=== PATIENT | female | born 1995 | race Two or more races ===

== ENCOUNTER → 2017-06-20 | Outpatient (REF) | payer OTHER ==
[2017-06-20 15:30] LABS: BASO % 0.7 % (0.0-1.0); EOS # 0.2 10^3/uL (0.0-0.50); EOS % 3.7 % (0.0-3.0); IMMATURE GRANULOCYTE % 0.2 % (0-0); LYMPH # 1.8 10^3/uL (1.5-6.5); LYMPH % 33.3 % (24.0-44.0); MEAN CORPUSCULAR HEMOGLOBIN 30.8 pg (27.0-33.0); MEAN CORPUSCULAR HGB CONC 33.6 g/dl (32.0-36.5); MEAN CORPUSCULAR VOLUME 91.5 fl (80.0-96.0); MONO # 0.4 10^3/uL (0.0-0.8); MONO % 6.4 % (0.0-5.0); NEUTROPHILS % 55.7 % (36.0-66.0); PLATELET COUNT, AUTOMATED 294 10^3/uL (150-450); WHITE BLOOD COUNT 5.4 10^3/uL (4.0-10.0)
[2017-06-20 15:42] LABS: ALBUMIN 4.1 GM/DL (3.2-5.2); ALBUMIN/GLOBULIN RATIO 1.21 (1.00-1.93); ALKALINE PHOSPHATASE 42 U/L (45-117); ALT/SGPT 18 U/L (12-78); ANION GAP 7 MEQ/L (8-16); AST/SGOT 13 U/L (7-37); BILIRUBIN,TOTAL 0.5 MG/DL (0.2-1.0); BLOOD UREA NITROGEN 13 MG/DL (7-18); CALCIUM LEVEL 9.3 MG/DL (8.5-10.1); CARBON DIOXIDE LEVEL 26 MEQ/L (21-32); CHLORIDE LEVEL 107 MEQ/L (98-107); CHOLESTEROL LEVEL 220 MG/DL (<200); CREATININE FOR GFR 0.81 MG/DL (0.55-1.02); FREE T4 1.03 NG/DL (0.78-1.33); GLUCOSE, FASTING 75 MG/DL (70-105); POTASSIUM SERUM 4.6 MEQ/L (3.5-5.1); SODIUM LEVEL 140 MEQ/L (136-145); TOTAL PROTEIN 7.5 GM/DL (6.4-8.2); TRIGLYCERIDES LEVEL 135 MG/DL (<150)
== END ==
LOC: M SFHCSACK 10:04
PROVIDERS: ATTEND Physician Assistant
DX: Z00.00 Encounter for general adult medical examination without abnormal findings (principal); Z13.220 Encounter for screening for lipoid disorders; Z13.29 Encounter for screening for other suspected endocrine disorder; Z13.21 Encounter for screening for nutritional disorder

== ENCOUNTER → 2017-07-12 | Outpatient (REF) | payer OTHER ==
[~2017-07-12] MED LIST: NICODIS2 TD; TRI-TAB PO
== END ==
LOC: M LAB REF 14:57
PROVIDERS: ATTEND Internal Medicine Gastroenterology
DX: L29.0 Pruritus ani (principal)

== ENCOUNTER 2017-07-17 12:53 | Day surgery (SDC) | payer OTHER ==
[~2017-07-17] VITALS: Ht 154.9 cm; Wt 54.4 kg
[2017-07-17] MEDS ORDERED: NS 1,000 ML IV SCH (13:15)
[2017-07-17] MEDS ORDERED: PROPOFOL 200 MG/20 ML VIAL As Ordered ONE (13:22)
--- NOTE | 2017-07-17 14:07 | ROOR ---
Patient Name: Deedee Castanon Procedure Date: 07/17/2017 1:31 PM Date of : 1995 Age: 21 Room: [facility] Gender: Female Note Status: Finalized Procedure: Colonoscopy Indications: Suspected Crohn's disease of the colon, Rectal pain Providers: Michael Capellan MD Referring MD: Mary Ann Collier Requesting Provider: Medicines: Monitored Anesthesia Care Complications: No immediate complications. Procedure: Pre-Anesthesia Assessment: - Prior to the procedure, a History and Physical was performed, and patient medications and allergies were reviewed. The patient is competent. The risks and benefits of the procedure and the sedation options and risks were discussed with the patient. All questions were answered and informed consent was obtained. Patient identification and proposed procedure were verified by the physician, the nurse and the anesthesiologist in the procedure room. Mental Status Examination: alert and oriented. Airway Examination: normal oropharyngeal airway and neck mobility. Respiratory Examination: clear to auscultation. CV Examination: normal. Prophylactic Antibiotics: The patient does not require prophylactic antibiotics. Prior Anticoagulants: The patient has taken no previous anticoagulant or antiplatelet agents. ASA Grade Assessment: I - A normal, healthy patient. After reviewing the risks and benefits, the patient was deemed in satisfactory condition to undergo the procedure. The anesthesia plan was to use monitored anesthesia care (MAC). Immediately prior to administration of medications, the patient was re-assessed for adequacy to receive sedatives. The heart rate, respiratory rate, oxygen saturations, blood pressure, adequacy of pulmonary ventilation, and response to care were monitored throughout the procedure. The physical status of the patient was re-assessed after the procedure. The Colonoscope was introduced through the anus and advanced to the terminal ileum, with identification of the appendiceal orifice and IC valve. The colonoscopy was performed without difficulty. The patient tolerated the procedure well. The quality of the bowel preparation was good. The terminal ileum, ileocecal valve, appendiceal orifice, and rectum were photographed. Scope insertion time was 3 minutes. Scope withdrawal time was 8 minutes. The total duration of the procedure was 11 minutes. Findings: The perianal and digital rectal examinations were normal. The terminal ileum appeared normal. A 5 mm polyp was found in the transverse colon. The polyp was sessile. The polyp was removed with a jumbo cold forceps. Resection and retrieval were complete. Verification of patient identification for the specimen was done by the physician and nurse using the patient's name, date and medical record number. Estimated blood loss was minimal. The retroflexed view of the distal rectum and anal verge was normal and showed no anal or rectal abnormalities. Impression: - The examined portion of the ileum was normal. - One 5 mm polyp in the transverse colon, removed with a jumbo cold forceps. Resected and retrieved. Recommendation: - Patient has a contact number available for emergencies. The signs and symptoms of potential delayed complications were discussed with the patient. Return to normal activities tomorrow. Written discharge instructions were provided to the patient. - Resume previous diet. - Continue present medications. - Await pathology results. - Return to GI clinic 1 - 2 weeks. Please call GI clinic @ [phone] for apppointment date and time. - Return to primary care physician. Michael Capellan MD Michael Capellan MD 07/17/2017 2:06:44 PM This report has been signed electronically. Number of Addenda: 0 Note Initiated On: 07/17/2017 1:31 PM Estimated Blood Loss: Estimated blood loss was minimal.
[2017-07-17 14:38] VITALS: BP 106/60
== END 2017-07-17 14:44 | disposition home or self-care (01) ==
LOC: M OPP 12:53
PROVIDERS: ATTEND Internal Medicine Gastroenterology
DX: R10.2 Pelvic and perineal pain (principal); L29.0 Pruritus ani; D12.3 Benign neoplasm of transverse colon; L70.9 Acne, unspecified; F17.210 Nicotine dependence, cigarettes, uncomplicated; Z79.899 Other long term (current) drug therapy; Z80.41 Family history of malignant neoplasm of ovary; Z80.49 Family history of malignant neoplasm of other genital organs

== ENCOUNTER → 2017-09-26 | Outpatient (REF) | payer OTHER ==
[2017-09-26 14:12] LABS: BASO % 0.5 % (0.0-1.0); EOS # 0.2 10^3/uL (0.0-0.50); EOS % 3.9 % (0.0-3.0); HEMATOCRIT 39.8 % (36.0-47.0); HEMOGLOBIN 13.3 g/dl (12.0-16.0); IMMATURE GRANULOCYTE % 0.5 % (0-3.0); LYMPH # 1.4 10^3/uL (1.5-6.5); LYMPH % 32.6 % (24.0-44.0); MEAN CORPUSCULAR HEMOGLOBIN 30.4 pg (27.0-33.0); MEAN CORPUSCULAR HGB CONC 33.4 g/dl (32.0-36.5); MEAN CORPUSCULAR VOLUME 90.9 fl (80.0-96.0); MONO # 0.3 10^3/uL (0.0-0.8); MONO % 7.9 % (0.0-5.0); NEUTROPHILS # 2.4 10^3/uL (1.8-7.7); NEUTROPHILS % 54.6 % (36.0-66.0); PLATELET COUNT, AUTOMATED 260 10^3/uL (150-450); RED BLOOD COUNT 4.38 10^6/uL (4.00-5.40); RED CELL DISTRIBUTION WIDTH 11.9 % (11.5-14.5); WHITE BLOOD COUNT 4.3 10^3/uL (4.0-10.0)
[2017-09-26 14:32] LABS: TOTAL 25(OH) VITAMIN D 31.4 NG/ML (30.0-100.0)
[2017-09-26 14:34] LABS: ALBUMIN 3.7 GM/DL (3.2-5.2); ALBUMIN/GLOBULIN RATIO 1.06 (1.00-1.93); ALKALINE PHOSPHATASE 55 U/L (45-117); ALT/SGPT 18 U/L (12-78); ANION GAP 8 MEQ/L (8-16); AST/SGOT 19 U/L (7-37); BILIRUBIN,TOTAL 0.3 MG/DL (0.2-1.0); BLOOD UREA NITROGEN 15 MG/DL (7-18); CARBON DIOXIDE LEVEL 27 MEQ/L (21-32); CHLORIDE LEVEL 106 MEQ/L (98-107); CHOLESTEROL LEVEL 170 MG/DL (<200); CHOLESTEROL RISK RATIO 2.698 (<5); CREATININE FOR GFR 0.71 MG/DL (0.55-1.30); GLOMERULAR FILTRATION RATE > 60.0 (>60); GLUCOSE, FASTING 74 MG/DL (70-100); HDL CHOLESTEROL 63 MG/DL (>40); LDL CHOLESTEROL 84.4 MG/DL (<100); NON-HDL-C 107 MG/DL; POTASSIUM SERUM 4.3 MEQ/L (3.5-5.1); SODIUM LEVEL 141 MEQ/L (136-145); TOTAL PROTEIN 7.2 GM/DL (6.4-8.2); TRIGLYCERIDES LEVEL 113 MG/DL (<150)
== END ==
LOC: M SFHCSACK 09:15
DX: Z00.00 Encounter for general adult medical examination without abnormal findings (principal); E78.2 Mixed hyperlipidemia; Z13.21 Encounter for screening for nutritional disorder
CPT/HCPCS: 82306

== ENCOUNTER → 2017-11-09 | Outpatient (REF) | payer OTHER | LOC: M SFHCSACK 10:56 | DX: J02.9 Acute pharyngitis, unspecified (principal) ==

== ENCOUNTER 2018-06-18 21:28 | Emergency (ER) | payer OTHER, MEDICAID ==
[2018-06-19] MEDS: diphenhydrAMINE 50 MG CAP PO (00:18)
[2018-06-19] MEDS: ANUSOL HC CREAM 30GM TOP (00:22)
== END 2018-06-19 00:23 | disposition home or self-care (01) ==
LOC: M ED 06-19 00:23
DX: L29.0 Pruritus ani (principal); S30.817A Abrasion of anus, initial encounter; X58.XXXA Exposure to other specified factors, initial encounter; Y92.89 Other specified places as the place of occurrence of the external cause; K64.9 Unspecified hemorrhoids; Z87.891 Personal history of nicotine dependence; Z79.3 Long term (current) use of hormonal contraceptives
CPT/HCPCS: 99283

== ENCOUNTER → 2018-09-17 | Outpatient (CLI) | payer OTHER ==
[~2018-09-17] MED LIST changes: +HYDR25OIN TOP; +[UNRECOGNIZED DRUG - CODE] TOP
[2018-09-17 18:17] LABS: BASO # 0.1 10^3/uL (0.0-0.2); BASO % 0.7 % (0.0-1.0); EOS # 0.2 10^3/uL (0.0-0.50); EOS % 2.2 % (0.0-3.0); LYMPH # 2.1 10^3/uL (1.5-6.5); LYMPH % 31.1 % (24.0-44.0); MEAN CORPUSCULAR HEMOGLOBIN 30.6 pg (27.0-33.0); MEAN CORPUSCULAR HGB CONC 32.5 g/dl (32.0-36.5); MEAN CORPUSCULAR VOLUME 94.1 fl (80.0-96.0); MONO # 0.4 10^3/uL (0.0-0.8); MONO % 5.5 % (0.0-5.0); NEUTROPHILS # 4.1 10^3/uL (1.8-7.7); NEUTROPHILS % 60.2 % (36.0-66.0); PLATELET COUNT, AUTOMATED 263 10^3/uL (150-450); RED BLOOD COUNT 4.25 10^6/uL (4.00-5.40); WHITE BLOOD COUNT 6.8 10^3/uL (4.0-10.0)
[2018-09-17 18:28] LABS: ALT/SGPT 22 U/L (12-78); BILIRUBIN,TOTAL 0.3 MG/DL (0.2-1.0); BLOOD UREA NITROGEN 15 MG/DL (7-18); CALCIUM LEVEL 9.1 MG/DL (8.5-10.1); CARBON DIOXIDE LEVEL 28 MEQ/L (21-32); CHLORIDE LEVEL 103 MEQ/L (98-107); CREATININE FOR GFR 0.84 MG/DL (0.55-1.30); FREE T4 0.92 NG/DL (0.76-1.46); GLOMERULAR FILTRATION RATE > 60.0 (>60); GLUCOSE, FASTING 76 MG/DL (70-100); POTASSIUM SERUM 4.5 MEQ/L (3.5-5.1); SODIUM LEVEL 140 MEQ/L (136-145)
[2018-09-17 18:51] LABS: MONO REFLEX EBV COMP NEGATIVE (NEGATIVE)
[2018-09-20 00:07] LABS: EBV VIRAL CAPSID AG IgG 99.4 U/mL (0.0-17.9); EBV VIRAL CAPSID AG IgM <36.0 U/mL (0.0-35.9); Lyme Disease IgG/IgM Antibodie <0.91 ISR (0.00-0.90); Lyme Disease IgM Ab Quantitati <0.80 index (0.00-0.79)
== END ==
LOC: M LABDRWAD 15:17
PROVIDERS: ATTEND Physician Assistant Medical
DX: R53.83 Other fatigue (principal)

== ENCOUNTER → 2019-02-18 | Outpatient (CLI) | payer OTHER | LOC: M WUC 17:39 | PROVIDERS: ATTEND Physician Assistant | DX: N92.6 Irregular menstruation, unspecified (principal) ==

== ENCOUNTER → 2019-05-30 | Outpatient (CLI) | payer OTHER ==
[2019-05-30 12:13] LABS: PROLACTIN 7.4 NG/ML; THYROID STIMULATING HORMONE 0.866 uIU/ML (0.358-3.740)
== END ==
LOC: M LAB 10:44
PROVIDERS: ATTEND Nurse Practitioner Family
DX: N91.2 Amenorrhea, unspecified (principal)

== ENCOUNTER → 2019-06-04 | Outpatient (CLI) | payer OTHER ==
--- NOTE | 2019-06-04 12:47 | REP ---
TRANSVAGINAL PELVIC ULTRASOUND: Transvaginal pelvic ultrasound performed. Uterus is retroverted and measures 6.2 x 3.2 x 3.8 cm. Endometrial thickness is 8 mm. There is no endometrial fluid collection. Right ovary measures 2.8 x 2.7 x 1.8 cm. There is a dominant follicle in the right ovary 1.0 x 1.5 x 2.0 cm. Left ovary measures 3.2 x 2.6 x 4.3 cm. There is a small simple cyst in the left ovary 2.4 x 2.1 x 3.3 cm. There is no other evidence of adnexal mass. There is no free fluid. There is no evidence of ovarian torsion, blood flow is seen in each ovary with duplex Doppler evaluation. IMPRESSION: Simple cyst left ovary 3.3 cm maximally. Dominant follicle right ovary 1.5 cm maximally. Endometrial thickness 8.0 mm. Electronically Signed by Moe Love MD 06/04/2019 01:13 P
== END ==
LOC: M RAD 10:53
PROVIDERS: ATTEND Nurse Practitioner Family
DX: N91.2 Amenorrhea, unspecified (principal); N83.202 Unspecified ovarian cyst, left side

== ENCOUNTER → 2019-06-30 | Outpatient (REF) | payer OTHER ==
[2019-06-30 14:16] LABS: BASO # 0.1 10^3/uL (0.0-0.2); EOS # 0.3 10^3/uL (0.0-0.5); EOS % 6.4 % (0.0-3.0); HEMATOCRIT 39.6 % (36.0-47.0); HEMOGLOBIN 12.7 g/dl (12.0-15.5); LYMPH # 1.6 10^3/uL (1.5-5.0); LYMPH % 30.9 % (24.0-44.0); MEAN CORPUSCULAR HGB CONC 32.1 g/dl (32.0-36.5); MEAN CORPUSCULAR VOLUME 93.4 fl (80.0-96.0); MONO # 0.4 10^3/uL (0.0-0.8); MONO % 8.2 % (0.0-5.0); NEUTROPHILS # 2.7 10^3/uL (1.5-8.5); NEUTROPHILS % 53.3 % (36.0-66.0); PLATELET COUNT, AUTOMATED 252 10^3/uL (150-450); RED BLOOD COUNT 4.24 10^6/uL (4.00-5.40)
[2019-06-30 14:25] LABS: ALBUMIN 3.7 GM/DL (3.2-5.2); ALT/SGPT 31 U/L (12-78); BILIRUBIN,TOTAL 0.5 MG/DL (0.2-1.0); BLOOD UREA NITROGEN 15 MG/DL (7-18); CALCIUM LEVEL 8.7 MG/DL (8.5-10.1); CARBON DIOXIDE LEVEL 27 MEQ/L (21-32); CHLORIDE LEVEL 108 MEQ/L (98-107); CHOLESTEROL LEVEL 164 MG/DL (<200); CHOLESTEROL RISK RATIO 2.376 (<5); CREATININE FOR GFR 0.78 MG/DL (0.55-1.30); GLOMERULAR FILTRATION RATE > 60.0 (>60); GLUCOSE, FASTING 87 MG/DL (70-100); HDL CHOLESTEROL 69 MG/DL (>40); LDL CHOLESTEROL 86 MG/DL (<100); NON-HDL-C 95 MG/DL; POTASSIUM SERUM 4.8 MEQ/L (3.5-5.1); SODIUM LEVEL 140 MEQ/L (136-145); TOTAL PROTEIN 6.9 GM/DL (6.4-8.2); TRIGLYCERIDES LEVEL 45 MG/DL (<150)
[2019-06-30 14:27] LABS: TOTAL 25(OH) VITAMIN D 23.8 NG/ML (30.0-100.0)
== END ==
LOC: M SFHCSACK 09:53
PROVIDERS: ATTEND Physician Assistant
DX: Z13.29 Encounter for screening for other suspected endocrine disorder (principal); L29.0 Pruritus ani; E78.2 Mixed hyperlipidemia; Z13.21 Encounter for screening for nutritional disorder

== ENCOUNTER → 2019-08-29 | Outpatient (REF) | payer OTHER | LOC: M LAB REF 15:21 | PROVIDERS: ATTEND Dermatology | DX: D22.30 Melanocytic nevi of unspecified part of face (principal) ==

== ENCOUNTER 2020-05-10 17:04 | Emergency (ER) | payer OTHER ==
[~2020-05-10] VITALS: Ht 154.9 cm; Wt 62.1 kg
[2020-05-10] MEDS ORDERED: prenatal (17:13)
[2020-05-10] MEDS ORDERED: benadryl (17:13)
[2020-05-10 20:31] LABS: BASO # 0.1 10^3/uL (0.0-0.2); BASO % 0.6 % (0.0-1.0); EOS # 0.6 10^3/uL (0.0-0.5); EOS % 3.6 % (0.0-3.0); HEMATOCRIT 38.4 % (36.0-47.0); HEMOGLOBIN 13.2 g/dl (12.0-15.5); LYMPH % 19.5 % (24.0-44.0); MEAN CORPUSCULAR HEMOGLOBIN 30.6 pg (27.0-33.0); MEAN CORPUSCULAR HGB CONC 34.4 g/dl (32.0-36.5); MEAN CORPUSCULAR VOLUME 88.9 fl (80.0-96.0); MONO # 0.9 10^3/uL (0.0-0.8); MONO % 5.5 % (0.0-5.0); NEUTROPHILS # 10.9 10^3/uL (1.5-8.5); NEUTROPHILS % 70.4 % (36.0-66.0); PLATELET COUNT, AUTOMATED 307 10^3/uL (150-450); RED BLOOD COUNT 4.32 10^6/uL (4.00-5.40); WHITE BLOOD COUNT 15.4 10^3/uL (4.0-10.0)
[2020-05-10] MEDS ORDERED: ACETAMINOPHEN 325 MG TAB PO ONE (20:45)
[2020-05-10] MEDS ORDERED: NS 1,000 ML IV ONE (20:45)
--- NOTE | 2020-05-10 22:05 | REPVR ---
PROCEDURE INFORMATION: Exam: US First Trimester, Transabdominal Exam date and time: 05/10/2020 9:19 PM Age: 24 years old Clinical indication: complicated by abdominal or pelvic pain; Lower; First trimester; Gestational age or lmp: 02/17/20; ; Additional info: Pelvic cramping TECHNIQUE: Imaging protocol: Real-time transabdominal obstetrical ultrasound of the maternal pelvis and a first trimester , less than 14 weeks 0 days, with image documentation. COMPARISON: No relevant prior studies available. FINDINGS: Gestation: Live single intrauterine gestation. Embryonic/ heart rate: heart rate is 169 bpm. Placenta: Unremarkable. No subchorionic bleed. Amniotic fluid: Amniotic fluid is normal for gestational age. BIOMETRY: Gestational age (AUA): Twelve weeks 1 day Harvel-Rump length: Harvel-rump length is 5.5 cm consistent with 12 week 1 day gestation. MATERNAL: Uterus: Unremarkable. Cervix: Unremarkable. Right adnexa: Right ovary measures 4.1 x 2.8 x 3.2 cm. It contains a cystic structure which may represent a corpus luteum measuring 2.7 x 1.8 x 1.6 cm. Arterial and venous blood flow is detected in the right ovary. Left adnexa: The left ovary is not identified. Intraperitoneal space: No intraperitoneal free fluid. IMPRESSION: Live single intrauterine gestation with ultrasound age of 12 weeks 1 day with an LUCILLE of 11/21/2020. Electronically signed by: Milagro Owens On 05/10/2020 22:05:45 PM
[2020-05-10] MEDS ORDERED: KEFL500C17 PO (22:34)
[2020-05-10 22:42] VITALS: BP 117/68
[2020-05-10] MEDS ORDERED: POTASSIUM CHLORIDE 10 MEQ SR TABLET PO ONE (22:45)
== END 2020-05-10 22:43 | disposition home or self-care (01) ==
LOC: M ED 17:04
DX: O26.891 Other specified pregnancy related conditions, first trimester (principal); Z32.01 Encounter for pregnancy test, result positive; O23.41 Unspecified infection of urinary tract in pregnancy, first trimester; Z3A.12 12 weeks gestation of pregnancy

== ENCOUNTER → 2020-08-30 | Outpatient (CLI) | payer OTHER ==
[~2020-08-30] MED LIST changes: +KEFL500C17 PO; +benadryl; +prenatal
[2020-08-30 11:07] LABS: HEMATOCRIT 35.2 % (36.0-47.0); HEMOGLOBIN 11.4 g/dl (12.0-15.5); MEAN CORPUSCULAR HEMOGLOBIN 29.7 pg (27.0-33.0); MEAN CORPUSCULAR HGB CONC 32.4 g/dl (32.0-36.5); MEAN CORPUSCULAR VOLUME 91.7 fl (80.0-96.0); PLATELET COUNT, AUTOMATED 253 10^3/uL (150-450); RED BLOOD COUNT 3.84 10^6/uL (4.00-5.40); WHITE BLOOD COUNT 12.4 10^3/uL (4.0-10.0)
== END ==
LOC: M LAB 09:34
PROVIDERS: ATTEND Obstetrics & Gynecology
DX: Z34.82 Encounter for supervision of other normal pregnancy, second trimester (principal); Z3A.00 Weeks of gestation of pregnancy not specified

== ENCOUNTER → 2020-09-02 | Outpatient (CLI) | payer OTHER | LOC: M LAB 08:13 | PROVIDERS: ATTEND Obstetrics & Gynecology | DX: O99.810 Abnormal glucose complicating pregnancy (principal); Z3A.00 Weeks of gestation of pregnancy not specified ==

== ENCOUNTER 2020-10-22 23:03 | Outpatient (CLI) | payer OTHER ==
[~2020-10-22] VITALS: Ht 154.9 cm; Wt 80.7 kg
[2020-10-22 23:29] VITALS: BP 134/71
[2020-10-23 00:21] VITALS: BP 111/56
[2020-10-23 00:41] VITALS: BP 122/74
[2020-10-23 00:42] LABS: APPEARANCE, URINE CLEAR (CLEAR); BACTERIA, URINE AUTO NEGATIVE (NEGATIVE); BILIRUBIN, URINE AUTO NEGATIVE (NEGATIVE); BLOOD, URINE BLOOD NEGATIVE (NEGATIVE); COLOR, URINE YELLOW (YELLOW); GLUCOSE, URINE (UA) AUTO NEGATIVE (NEGATIVE); KETONE, URINE AUTO NEGATIVE (NEGATIVE); LEUKOCYTE ESTERASE, URINE AUTO NEGATIVE (NEGATIVE); MUCUS, URINE SMALL (NEGATIVE); NITRITE, URINE AUTO NEGATIVE (NEGATIVE); PROTEIN, URINE AUTO NEGATIVE (NEGATIVE); RBC, URINE AUTO 0 /HPF (0-3); SPECIFIC GRAVITY URINE AUTO 1.012 (1.002-1.035); SQUAMOUS EPITHELIAL CELL UR AU 0 /HPF (0-6); UROBILINOGEN, URINE AUTO 0.2 mg/dL (0.0-2.0); WBC, URINE AUTO 2 /HPF (0-3)
[2020-10-23] MEDS ORDERED: ACETAMINOPHEN 500 MG TAB PO ONE (00:45)
--- NOTE | 2020-10-23 03:24 | IPNPDOC ---
Text Note Date of Service The patient was seen on 10/23/20. NOTE Subjective: Deedee is a 25-year-old female who is a at 35.1 weeks gestation with an LUCILLE of 11/26/20 based off of her first trimester ultrasound. She is receiving care at [facility]. Her has been uncomplicated. She presents tonight with complaints of lower back pain that was constant and with cramps. She denies vaginal bleeding, contractions, or leaking of fluid. She reports active movement. PMHx: Healthy SHx: none FHx: ovarian and uterine cancer Social Hx: [place], reports she is a former smoker. Denies use of alcohol or drugs during . OB Hx: ; 2015 induced . Objective: FHR: 120, moderate variability, positive accelerations, no decelerations. [place]: 5 to 12 minutes General: Alert and oriented. Does not appear to be in any distress Respiratory: Regular rate and rhythm, no use of accessory muscles. Abdomen: soft and non-tender to palpation. SCE: FT/thick/-2, midposition, soft, no show Assessment: IUP at 35.1, lower back pain, not in active labor Plan. Given Tylenol 1000 mg in hospital. Patient reported the Tylenol worked well and patient requested to go home. Discharged to home with precautions. Reviewed access to care, kick count, labor signs, and danger signs to report. Continue with routine OB appointments. VS,Fishbone, I+O VS, Fishbone, I+O Vital Signs Date Time Temp Pulse Resp B/P (MAP) Pulse Ox O2 Delivery O2 Flow Rate FiO2 10/23/20 02:02 97.5 88 18 10/23/20 00:41 122/74 (90) 10/22/20 23:30 98 Room Air PHILIPPE PAYNE CNM Oct 23, 2020 03:24
== END 2020-10-23 01:57 | disposition home or self-care (01) ==
LOC: M LDO 23:03
PROVIDERS: ATTEND Advanced Practice Midwife
DX: O26.893 Other specified pregnancy related conditions, third trimester (principal); M54.5 Low back pain; Z3A.35 35 weeks gestation of pregnancy; Z87.891 Personal history of nicotine dependence

== ENCOUNTER 2020-10-27 14:03 | Inpatient (IN) | payer OTHER ==
[2020-10-27] VITALS (33 sets, daily range): BP systolic 84–140; BP diastolic 47–103
[~2020-10-27] VITALS: Ht 154.9 cm; Wt 79.0 kg
[~2020-10-27 14:03] MED LIST changes: -ACET325C5 PO
[2020-10-27] MEDS ORDERED: ACET325C5 PO (14:38)
[2020-10-27] MEDS ORDERED: LIDOCAINE 1% MDV 20ML VIAL INFIL PRN (15:05)
[2020-10-27] MEDS ORDERED: METHYLERGONOVINE MALEATE 0.2 MG/ML VIAL (J2210) IM PRN (15:05)
[2020-10-27] MEDS ORDERED: OXYTOCIN DRIP 30 UNITS in IV 1 EA IV PRN (15:05)
[2020-10-27] MEDS ORDERED: OXYTOCIN DRIP 30 UNITS in IV 1 EA IV SCH (15:05)
[2020-10-27] MEDS ORDERED: PENICILLIN G POTASSIUM IV 5 MU in D5W MINI-BAG PLUS 100 ML IV STA (15:05)
[2020-10-27] MEDS: LR 1,000 ML IV SCH ×3 (15:49→20:41)
[2020-10-27] MEDS ORDERED: BETAMETHASONE SOLUSPAN 6MG/ML 5ML VIAL (J0702 PER 3MG) IM SCH (16:00)
--- NOTE | 2020-10-27 16:07 | HPE ---
HISTORY AND PHYSICAL DATE OF ADMISSION: 10/27/2020 HISTORY OF PRESENT ILLNESS: Deedee is a 25-year-old 2 para 0-0-1-0 at 35 and 5/7th weeks gestation with an EDC of 11/26/2020 based on first trimester ultrasound. She presents to Labor and Delivery today following a routine OB appointment where she was reported to have gross rupture of clear fluid. She does report that she had cramping contractions prior to the rupture. The rupture occurred at approximately 12:30 p.m. and she has continued to leak clear fluid. She does deny vaginal bleeding. The fetus has been active. Her care was initiated at [facility] in the first trimester. Her course has been uncomplicated. OBSTETRIC HISTORY: In 2014 elective termination of . OBSTETRIC LABS: O positive, antibody screen negative, rubella immune, VDRL nonreactive. Urine culture: No growth. Hepatitis B surface antigen negative. HIV negative. Hepatitis C nonreactive. Gonorrhea and chlamydia negative. Gestational diabetic screening elevated at 142. Her 3 hour glucose tolerance test was normal. Fasting 88, 1 hour 179, 2 hour 160, and 3 hour 137. Her GBS is unknown and was obtained today in the office. PAST MEDICAL HISTORY: Noncontributory. Normal Pap smear in February 2020. PAST SURGICAL HISTORY: None. FAMILY HISTORY: Ovarian cancer and uterine cancer. SOCIAL HISTORY: The patient is single, however the father of the baby is involved. She is employed as a daycare provider. She reports that she is a former smoker. She denies alcohol use and drug use. She reports no history of sexually transmitted infections. She denies a history of abuse, physical, sexual, and emotional. ALLERGIES: No known drug allergies. CURRENT MEDICATIONS: 1. vitamins. OBJECTIVE: Temperature 99.2, pulse 125, respirations 20, BP 109/62. She is alert and oriented x3. She does grimace with her contractions. heart rate is 150 with moderate variability, positive accelerations, negative decelerations, contractions appear to be every 2 to 5 minutes, they palpate mild. Her abdomen is gravid, cephalic presentation with an estimated weight of 6 pounds and presentation was confirmed with bedside ultrasound as well. Per report form certified nurse marketing compliance manager at the office, [facility], she was grossly ruptured, positive Nitrazine, positive ferning, 1 cm dilated, and 40% effaced. Sterile vaginal exam is deferred at this time. She continues to leak clear fluid. ASSESSMENT: Intrauterine at 35 and 5/7th weeks, heart rate Category 1, PPROM. PLAN: Admit patient to Labor and Delivery, routine laboratories, betamethasone for lung maturity, start IV Pitocin for labor induction. The patient likely will desire an episode for her labor coping per her report. The risks, benefits and alternatives have been reviewed with the patient. I have answered all of her questions. She has been verbally consented for emergency surgery and blood products if necessary. I do anticipate active labor and a vaginal delivery.
[2020-10-27 16:15] LABS: HEMATOCRIT 38.1 % (36.0-47.0); HEMOGLOBIN 12.2 g/dl (12.0-15.5); MEAN CORPUSCULAR HEMOGLOBIN 27.1 pg (27.0-33.0); MEAN CORPUSCULAR VOLUME 84.7 fl (80.0-96.0); PLATELET COUNT, AUTOMATED 337 10^3/uL (150-450)
[2020-10-27] MEDS ORDERED: FENTANYL 2MCG/ML ROPIVACAINE 0.2% IN 0.9% NACL 100ML IVBAG As Ordered ONE (19:42)
[2020-10-27] MEDS: PENICILLIN G POTASSIUM IV 2.5 MU in IV 1 EA IV SCH (20:04)
[2020-10-27] MEDS ORDERED: EPIDURAL COMMENT XX SCH (21:00)
[2020-10-27] MEDS ORDERED: ePHEDrine SULFATE 25 MG/5 ML(5MG/ML) SYRINGE IV PRN (21:00)
[2020-10-27] MEDS ORDERED: diphenhydrAMINE 50MG/ML VIAL (J1200) IV PRN (21:00)
[2020-10-27] MEDS ORDERED: REFRIGERATOR IV KEYS XX PRN (21:00)
[2020-10-27] MEDS ORDERED: NALOXONE INJ 0.4MG/1ML VIAL (J2310 PER 1MG) IV PRN (21:00)
[2020-10-27] MEDS ORDERED: FENTANYL/ROPIVACAINE/NACL BAG 100 ML EPIDURAL SCH (21:00)
[2020-10-27] MEDS ORDERED: LACTATED RINGER'S 1000 ML IV PRN (21:00)
[2020-10-27] MEDS ORDERED: ONDANSETRON 4MG/2ML VIAL IV PRN (21:00)
[2020-10-27] MEDS ORDERED: EPIDURAL/PCA KEYS XX PRN (21:00)
[2020-10-28] VITALS (15 sets, daily range): BP systolic 103–144; BP diastolic 53–82
[2020-10-28] MEDS: PENICILLIN G POTASSIUM IV 2.5 MU in IV 1 EA IV SCH (00:17)
[2020-10-28] MEDS ORDERED: OXYTOCIN DRIP 30 UNITS in IV 1 EA IV SCH (01:57)
[2020-10-28] MEDS ORDERED: IBUPROFEN 800 MG TAB PO PRN (02:00)
[2020-10-28] MEDS ORDERED: MEASLES,MUMPS,RUBELLA VACCINE INJ (MMR-II) (90707) SC SCH (02:00)
[2020-10-28] MEDS ORDERED: ACETAMINOPHEN TAB 650MG DOSE (2X325MG) PO PRN (02:00)
[2020-10-28] MEDS ORDERED: IBUPROFEN 600MG TAB PO PRN (02:00)
[2020-10-28] MEDS ORDERED: METHYLERGONOVINE MALEATE 0.2 MG TAB PO PRN (02:00)
[2020-10-28] MEDS ORDERED: DIBUCAINE 1% OINTMENT 30GM TOP PRN (02:00)
[2020-10-28] MEDS ORDERED: DOCUSATE SODIUM 100MG CAPSULE PO PRN (02:00)
[2020-10-28] MEDS ORDERED: ACETAMINOPHEN 500 MG TAB PO PRN (02:00)
[2020-10-28] MEDS ORDERED: RHOGAM 300 MCG (1500 IU) INJ (J2790) IM SCH (02:00)
[2020-10-28] MEDS: PRENATAL VITAMINS CHEWABLE TABLET PO SCH (08:36)
--- NOTE | 2020-10-28 10:02 | DN ---
DELIVERY NOTE DATE OF DELIVERY: 10/28/2020 TIME OF : 0126 GENDER: Female APGARS: 9 and 9 LACERATIONS: First-degree and right labial. ANESTHESIA: Epidural. ESTIMATED BLOOD LOSS: 350 mL. COUNTS: Correct and verified. DESCRIPTION OF DELIVERY: Deedee is a 25-year-old 2, para 0-1-1-1 now, who was admitted to labor and delivery with premature rupture of membranes. IV Pitocin was started and labor did ensue. She used an epidural for her labor coping. She reached full dilation at 0029. She pushed to a normal spontaneous vaginal delivery of a live female infant in occiput anterior (OA) position with restitution to left occiput transverse (LOT) position with a left compound hand at 0126. Shoulders delivered spontaneously and the corpus immediately followed. The 's mouth and nares were bulb suctioned and she was placed on the maternal abdomen crying and active. The cord was clamped x2 once pulsations ceased and cut by the father of the baby under my direction. Cord blood was obtained. Spontaneous expulsion of an intact placenta with three-vessel cord by Hernandez mechanism was at 0131. Uterine hemostasis achieved with IV Pitocin rapid infusion and uterine fundal massage. Estimated blood loss 350 mL. Perineum and vagina inspected noted to have a first-degree laceration and a right labial laceration. The lacerations were repaired with 3-0 Vicryl Rapide in the usual fashion. [place] female weighed 7 pounds 2 ounces (3230 grams). Apgars 9 and 9. Mom is going to breastfeed. This family has named their daughter Kathia. At the close of delivery lap counts, needle counts, and instrument counts were correct and verified.
[2020-10-28] MEDS ORDERED: LR 1,000 ML IV ONE (10:35)
[2020-10-29 02:00] VITALS: BP_SYST 117; BP_SYST 134; BP_DIAS 57; BP_DIAS 71
[2020-10-29 06:00] VITALS: BP 119/78
[2020-10-29] MEDS: PRENATAL VITAMINS CHEWABLE TABLET PO SCH (08:03)
--- NOTE | 2020-10-29 08:11 | IPNPDOC ---
Progress Note Date of Service: Oct 29, 2020 Day#: 1 Progress Note SUBJECT: Status post . She has been ambulating, voiding spontaneously without issue and tolerating regular diet. Lochia decreasing/minimal. Pain is well-controlled. Denies headache, visual changes, right upper quadrant pain, shortness breath or chest pain. OBJECTIVE: VITAL SIGNS: Within normal limits, afebrile. Alert and oriented times three. Abdomen: Fundus firm at U-2. Soft, NTTP. ASSESSMENT: Status post uncomplicated spontaneous vaginal delivery. Vitals within normal limits, afebrile, hemodynamically stable with no evidence of infection. PLAN: Discharge to home today. Tylenol and Motrin for pain. Routine instructions/precautions reviewed. Routine PP visit in 6 weeks in clinic. VS, I&O, 24H, Fishbone Vital Signs/I&O Vital Signs Date Time Temp Pulse Resp B/P (MAP) Pulse Ox O2 Delivery O2 Flow Rate FiO2 10/29/20 06:00 97.9 100 16 119/78 (92) 98 Room Air CHEPE HINES DO Oct 29, 2020 08:11
[2020-10-29] MEDS ORDERED: BOOSTRIX/ADACEL VACCINE (DIPHTH/PERTUSS/ACELL/TETANUS) 0.5ML SYR IM ONE (09:00)
[2020-10-29 10:00] VITALS: BP 119/64
[2020-10-29 14:00] VITALS: BP 121/72
[2020-10-29 18:00] VITALS: BP 118/68
[2020-10-29 22:00] VITALS: BP 121/75
[2020-10-30 06:00] VITALS: BP 122/84
[2020-10-30] MEDS: PRENATAL VITAMINS CHEWABLE TABLET PO SCH (09:05)
== END 2020-10-30 10:10 | disposition home or self-care (01) | DRG 560 ==
LOC: M LDI 14:03 → M OBS 10-28 03:12
PROVIDERS: ADMIT Advanced Practice Midwife; ATTEND Advanced Practice Midwife
PROC: 10E0XZZ Delivery of Products of Conception, External Approach (ICD-10-PCS; principal; 2020-10-28)
PROC: 0HQ9XZZ Repair Perineum Skin, External Approach (ICD-10-PCS; 2020-10-28)
DX: O42.013 Preterm premature rupture of membranes, onset of labor within 24 hours of rupture, third trimester (principal); Z3A.35 35 weeks gestation of pregnancy; Z37.0 Single live birth; O64.5XX0 Obstructed labor due to compound presentation, not applicable or unspecified; O70.0 First degree perineal laceration during delivery

== ENCOUNTER → 2020-10-27 | Outpatient (REF) | payer OTHER, MEDICAID ==
[~2020-10-27] MED LIST changes: +ACET325C5 PO
== END ==
LOC: M LAB REF 16:15
PROVIDERS: ATTEND Advanced Practice Midwife
DX: Z34.83 Encounter for supervision of other normal pregnancy, third trimester (principal)

== ENCOUNTER → 2021-02-12 | Outpatient (CLI) | payer OTHER ==
[~2021-02-12] MED LIST changes: +ACET325C5 PO
[2021-02-12 11:54] LABS: FREE T4 0.7 NG/DL (0.76-1.46); THYROID STIMULATING HORMONE 0.831 uIU/ML (0.358-3.740)
== END ==
LOC: M LAB 09:46
PROVIDERS: ATTEND Orthopaedic Surgery
DX: G56.03 Carpal tunnel syndrome, bilateral upper limbs (principal)

== ENCOUNTER → 2021-04-20 | Outpatient (REF) | payer OTHER ==
[2021-04-20 18:28] LABS: APPEARANCE, URINE CLOUDY (CLEAR); BACTERIA, URINE AUTO NEGATIVE (NEGATIVE); BILIRUBIN, URINE AUTO NEGATIVE (NEGATIVE); BLOOD, URINE BLOOD NEGATIVE (NEGATIVE); COLOR, URINE YELLOW (YELLOW); GLUCOSE, URINE (UA) AUTO NEGATIVE (NEGATIVE); KETONE, URINE AUTO NEGATIVE (NEGATIVE); LEUKOCYTE ESTERASE, URINE AUTO 3+ (NEGATIVE); MUCUS, URINE SMALL (NEGATIVE); NITRITE, URINE AUTO NEGATIVE (NEGATIVE); PROTEIN, URINE AUTO 1+ mg/dL (NEGATIVE); RBC, URINE AUTO 5 /HPF (0-3); SPECIFIC GRAVITY URINE AUTO 1.023 (1.002-1.035); SQUAMOUS EPITHELIAL CELL UR AU 3 /HPF (0-6); UROBILINOGEN, URINE AUTO 0.2 mg/dL (0.0-2.0); WBC, URINE AUTO TNTC /HPF (0-3)
== END ==
LOC: M SFHCADAM 16:16
PROVIDERS: ATTEND Physician Assistant
DX: N30.00 Acute cystitis without hematuria (principal)

== ENCOUNTER → 2022-08-21 | Outpatient (REF) | payer OTHER | LOC: M SFHCDERM 11:58 | PROVIDERS: ATTEND Physician Assistant | DX: D23.22 Other benign neoplasm of skin of left ear and external auricular canal (principal) ==

== ENCOUNTER → 2022-10-18 | Outpatient (REF) | payer OTHER | LOC: M SFHCDERM 14:21 | PROVIDERS: ATTEND Dermatology | DX: I78.1 Nevus, non-neoplastic (principal); L90.5 Scar conditions and fibrosis of skin ==

== ENCOUNTER → 2022-12-01 | Outpatient (REF) | payer OTHER ==
[2022-12-01 15:27] LABS: GC DNA AMPLIFICATION NEGATIVE (NEGATIVE)
== END ==
LOC: M SFHCADAM 12:50
PROVIDERS: ATTEND Physician Assistant
DX: R35.0 Frequency of micturition (principal); N76.0 Acute vaginitis

== ENCOUNTER → 2023-10-09 | Outpatient (REF) | payer OTHER ==
[2023-10-09 15:49] LABS: BASO # 0.1 10^3/uL (0.0-0.2); BASO % 0.7 % (0.0-1.0); EOS # 0.2 10^3/uL (0.0-0.5); HEMATOCRIT 41.8 % (36.0-47.0); HEMOGLOBIN 13.9 g/dl (12.0-15.5); LYMPH # 2.8 10^3/uL (1.5-5.0); LYMPH % 38.1 % (24.0-44.0); MEAN CORPUSCULAR HEMOGLOBIN 30.2 pg (27.0-33.0); MEAN CORPUSCULAR HGB CONC 33.3 g/dl (32.0-36.5); MEAN CORPUSCULAR VOLUME 90.9 fl (80.0-96.0); MONO # 0.4 10^3/uL (0.0-0.8); MONO % 5.1 % (2.0-8.0); NEUTROPHILS # 3.9 10^3/uL (1.5-8.5); PLATELET COUNT, AUTOMATED 276 10^3/uL (150-450); WHITE BLOOD COUNT 7.4 10^3/uL (4.0-10.0)
[2023-10-09 16:01] LABS: APPEARANCE, URINE CLEAR (CLEAR); BACTERIA, URINE AUTO NEGATIVE (NEGATIVE); BILIRUBIN, URINE AUTO NEGATIVE (NEGATIVE); BLOOD, URINE BLOOD NEGATIVE (NEGATIVE); COLOR, URINE YELLOW (YELLOW); GLUCOSE, URINE (UA) AUTO NEGATIVE (NEGATIVE); KETONE, URINE AUTO NEGATIVE (NEGATIVE); LEUKOCYTE ESTERASE, URINE AUTO NEGATIVE (NEGATIVE); MUCUS, URINE SMALL (NEGATIVE); NITRITE, URINE AUTO NEGATIVE (NEGATIVE); PROTEIN, URINE AUTO NEGATIVE (NEGATIVE); RBC, URINE AUTO 0 /HPF (0-3); SPECIFIC GRAVITY URINE AUTO 1.024 (1.002-1.035); SQUAMOUS EPITHELIAL CELL UR AU 0 /HPF (0-6); UROBILINOGEN, URINE AUTO 0.2 mg/dL (0.0-2.0); WBC, URINE AUTO 0 /HPF (0-3)
[2023-10-09 16:22] LABS: ALBUMIN 4.1 G/DL (3.2-5.2); ALKALINE PHOSPHATASE 53 U/L (46-116); ALT/SGPT 21 U/L (7.0-40); AST/SGOT 13 U/L (<34); BILIRUBIN,TOTAL 0.3 MG/DL (0.3-1.2); BLOOD UREA NITROGEN 21 MG/DL (9-23); CALCIUM LEVEL 8.6 MG/DL (8.5-10.1); CARBON DIOXIDE LEVEL 27 MMOL/L (20-31); CHLORIDE LEVEL 106 MMOL/L (98-107); CREATININE FOR GFR 0.73 MG/DL (0.55-1.30); FREE T4 1.01 NG/DL (0.89-1.76); GLOMERULAR FILTRATION RATE > 60.0 (>60); GLUCOSE, FASTING 83 MG/DL (60-100); POTASSIUM SERUM 4.3 MMOL/L (3.5-5.1); SODIUM LEVEL 140 MMOL/L (136-145); TOTAL PROTEIN 7.3 G/DL (5.7-8.2)
== END ==
LOC: M SFHCADAM 14:11
PROVIDERS: ATTEND Physician Assistant
DX: R35.0 Frequency of micturition (principal); Z12.4 Encounter for screening for malignant neoplasm of cervix

== ENCOUNTER → 2024-01-31 | Outpatient (REF) | payer OTHER ==
[2024-01-31 17:29] LABS: HEMATOCRIT 41.9 % (36.0-47.0); HEMOGLOBIN 14.1 g/dl (12.0-15.5); MEAN CORPUSCULAR HEMOGLOBIN 30.3 pg (27.0-33.0); MEAN CORPUSCULAR HGB CONC 33.7 g/dl (32.0-36.5); MEAN CORPUSCULAR VOLUME 89.9 fl (80.0-96.0); PLATELET COUNT, AUTOMATED 290 10^3/uL (150-450); RED BLOOD COUNT 4.66 10^6/uL (4.00-5.40); WHITE BLOOD COUNT 8.7 10^3/uL (4.0-10.0)
[2024-01-31 18:12] LABS: HEPATITIS B SURFACE ANTIGEN NEGATIVE (NEGATIVE)
[2024-01-31 18:25] LABS: HIV 1&2 SCREEN NEGATIVE (NEGATIVE)
[2024-01-31 18:33] LABS: HEPATITIS C VIRUS ABY INDEX < 0.02 INDEX (<0.8)
== END ==
LOC: M LAB REF 16:23
PROVIDERS: ATTEND Advanced Practice Midwife
DX: O36.80X0 Pregnancy with inconclusive fetal viability, not applicable or unspecified (principal); Z32.01 Encounter for pregnancy test, result positive; Z3A.00 Weeks of gestation of pregnancy not specified

== ENCOUNTER → 2024-02-11 | Outpatient (REF) | payer OTHER | LOC: M LAB REF 16:33 | PROVIDERS: ATTEND Advanced Practice Midwife | DX: O20.0 Threatened abortion (principal) ==

== ENCOUNTER → 2024-02-18 | Outpatient (REF) | payer OTHER | LOC: M LAB REF 12:35 | PROVIDERS: ATTEND Obstetrics & Gynecology | DX: O02.1 Missed abortion (principal) ==

== ENCOUNTER → 2024-02-25 | Outpatient (REF) | payer OTHER | LOC: M LAB REF 12:37 | PROVIDERS: ATTEND Obstetrics & Gynecology | DX: O02.1 Missed abortion (principal) ==

== ENCOUNTER → 2024-03-10 | Outpatient (REF) | payer OTHER | LOC: M LAB REF 12:26 | PROVIDERS: ATTEND Obstetrics & Gynecology | DX: O02.1 Missed abortion (principal) ==

== ENCOUNTER → 2024-07-24 | Outpatient (REF) | payer OTHER ==
[2024-07-24 13:33] LABS: HEMATOCRIT 39.8 % (36.0-47.0); HEMOGLOBIN 13.8 g/dl (12.0-15.5); MEAN CORPUSCULAR HEMOGLOBIN 30.8 pg (27.0-33.0); MEAN CORPUSCULAR HGB CONC 34.7 g/dl (32.0-36.5); MEAN CORPUSCULAR VOLUME 88.8 fl (80.0-96.0); PLATELET COUNT, AUTOMATED 288 10^3/uL (150-450); RED BLOOD COUNT 4.48 10^6/uL (4.00-5.40); WHITE BLOOD COUNT 9.7 10^3/uL (4.0-10.0)
[2024-07-24 14:24] LABS: HIV 1&2 SCREEN NEGATIVE (NEGATIVE)
[2024-07-24 14:32] LABS: HEPATITIS C VIRUS ABY INDEX < 0.02 INDEX (<0.8)
[2024-07-24 14:42] LABS: HCG, SERUM QUANTITATIVE 162798.4 MIU/ML (<4.2)
== END ==
LOC: M LAB REF 12:35
PROVIDERS: ATTEND Obstetrics & Gynecology
DX: O36.80X0 Pregnancy with inconclusive fetal viability, not applicable or unspecified (principal); Z3A.00 Weeks of gestation of pregnancy not specified

== ENCOUNTER 2024-07-31 10:29 | Emergency (ER) | payer OTHER ==
[~2024-07-31] VITALS: Ht 154.9 cm; Wt 72.9 kg
[2024-07-31 11:33] VITALS: TEMP 98.1; O2SAT 97
[2024-07-31 12:31] LABS: BASO % 0.3 % (0.0-1.0); EOS # 0.1 10^3/uL (0.0-0.5); EOS % 0.7 % (0.0-3.0); HEMATOCRIT 36.9 % (36.0-47.0); HEMOGLOBIN 12.5 g/dl (12.0-15.5); LYMPH # 1.6 10^3/uL (1.5-5.0); LYMPH % 17.3 % (24.0-44.0); MEAN CORPUSCULAR HGB CONC 33.9 g/dl (32.0-36.5); MEAN CORPUSCULAR VOLUME 88.5 fl (80.0-96.0); MONO # 0.5 10^3/uL (0.0-0.8); MONO % 5.6 % (2.0-8.0); NEUTROPHILS # 6.9 10^3/uL (1.5-8.5); NEUTROPHILS % 75.7 % (36.0-66.0); PLATELET COUNT, AUTOMATED 286 10^3/uL (150-450); RED BLOOD COUNT 4.17 10^6/uL (4.00-5.40); WHITE BLOOD COUNT 9.1 10^3/uL (4.0-10.0)
[2024-07-31 12:51] LABS: BLOOD UREA NITROGEN 8 MG/DL (9-23); CALCIUM LEVEL 9.4 MG/DL (8.5-10.1); CARBON DIOXIDE LEVEL 23 MMOL/L (20-31); CHLORIDE LEVEL 104 MMOL/L (98-107); GLOMERULAR FILTRATION RATE > 60.0 (>60); GLUCOSE, FASTING 81 MG/DL (60-100); POTASSIUM SERUM 4.6 MMOL/L (3.5-5.1); SODIUM LEVEL 136 MMOL/L (136-145)
[2024-07-31] MEDS: ONDANSETRON 4MG 2ML VIAL IV ONE (13:45)
[2024-07-31 13:57] VITALS: BP 102/96
[2024-07-31] MEDS: NS (Normal Saline) 0.9% 1,000 ML IV ONE (14:51)
[2024-07-31] MEDS ORDERED: ONDA-282 PO (17:53)
== END 2024-07-31 18:08 | disposition home or self-care (01) ==
LOC: M ED 10:29
DX: O21.9 Vomiting of pregnancy, unspecified (principal); Z3A.09 9 weeks gestation of pregnancy; Z87.59 Personal history of other complications of pregnancy, childbirth and the puerperium
CPT/HCPCS: 76801; 80048; 84702; 85025; 86850; 86900; 86901; 96374; 99284; J2405

== ENCOUNTER → 2024-10-16 | Outpatient (CLI) | payer OTHER ==
[~2024-10-16] MED LIST changes: +ONDA-282 PO
== END ==
LOC: M WHC 09:24
PROVIDERS: ATTEND Obstetrics & Gynecology
DX: Z34.82 Encounter for supervision of other normal pregnancy, second trimester (principal); Z3A.20 20 weeks gestation of pregnancy

== ENCOUNTER → 2024-11-06 | Outpatient (REF) | payer OTHER ==
[~2024-11-06] MED LIST changes: +MACR100C43 PO; +PYRI1TAB5 PO; -prenatal; +prenatal PO
== END ==
LOC: M LAB REF 17:17
PROVIDERS: ATTEND Obstetrics & Gynecology
DX: Z34.82 Encounter for supervision of other normal pregnancy, second trimester (principal); R30.0 Dysuria

== ENCOUNTER 2024-11-07 15:03 | Emergency (ER) | payer OTHER ==
[~2024-11-07 15:03] MED LIST changes: -MACR100C43 PO; -PYRI1TAB5 PO
[2024-11-07] MEDS ORDERED: PYRI1TAB5 PO (18:24)
[2024-11-07] MEDS ORDERED: MACR100C43 PO (18:24)
== END 2024-11-07 15:05 | disposition admitted as inpatient to this hospital (09) ==
LOC: M ED 15:03
DX: Z53.21 Procedure and treatment not carried out due to patient leaving prior to being seen by health care provider (principal)

== ENCOUNTER 2024-11-07 15:12 | Outpatient (CLI) | payer OTHER ==
[~2024-11-07] VITALS: Ht 154.9 cm; Wt 81.2 kg
[2024-11-07 15:40] VITALS: O2SAT 97
[2024-11-07 15:42] VITALS: BP 119/60
[2024-11-07 16:24] LABS: KETONE, URINE AUTO RFX NEGATIVE (NEGATIVE); LEUKOCYTE ESTERASE UR AUTO RFX 3+ (NEGATIVE); MUCUS, URINE RFX SMALL (NEGATIVE); NITRITE, URINE AUTO RFX NEGATIVE (NEGATIVE); RBC, URINE AUTO RFX 22 /HPF (0-3); SQUAM EPITHELIAL CELL UR AURFX 3 /HPF (0-6); WBC, URINE AUTO RFX TNTC /HPF (0-3)
[2024-11-07] MEDS ORDERED: HOME MED LIST COMPLETE! XX SCH (16:25)
[2024-11-07] MEDS: ACETAMINOPHEN 500 MG TAB PO ONE (16:34)
[2024-11-07 16:47] VITALS: BP 101/57; O2SAT 100
[2024-11-07 17:43] LABS: HEMATOCRIT 36.7 % (36.0-47.0); HEMOGLOBIN 12.1 g/dl (12.0-15.5); MEAN CORPUSCULAR VOLUME 90.8 fl (80.0-96.0); PLATELET COUNT, AUTOMATED 300 10^3/uL (150-450); RED BLOOD COUNT 4.04 10^6/uL (4.00-5.40)
[2024-11-07] MEDS ORDERED: PYRI1TAB5 PO (18:24)
[2024-11-07] MEDS ORDERED: MACR100C43 PO (18:24)
[2024-11-07] MEDS: PHENAZOPYRIDINE 100 MG TAB PO ONE (18:56)
[2024-11-07] MEDS: NITROFURANTOIN (MACROBID) 100 MG CAP PO ONE (18:56)
[2024-11-07] MEDS: ONDANSETRON 4MG 2ML VIAL IV ONE (20:16)
[2024-11-07 21:36] VITALS: BP 114/66
== END 2024-11-07 21:50 | disposition home or self-care (01) ==
LOC: M LDO 15:12
PROVIDERS: ATTEND Advanced Practice Midwife
DX: O23.42 Unspecified infection of urinary tract in pregnancy, second trimester (principal); O26.892 Other specified pregnancy related conditions, second trimester; R10.32 Left lower quadrant pain; M54.50 Low back pain, unspecified; N39.0 Urinary tract infection, site not specified; R10.2 Pelvic and perineal pain; B96.29 Other Escherichia coli [E. coli] as the cause of diseases classified elsewhere; Z3A.23 23 weeks gestation of pregnancy
CPT/HCPCS: 76775; 81001; 85027; 87088; 87186; 96374; G0463; J2405

== ENCOUNTER → 2024-12-08 | Outpatient (CLI) | payer OTHER ==
[~2024-12-08] MED LIST changes: +MACR100C43 PO; +PYRI1TAB5 PO
[2024-12-08 11:26] LABS: HEMATOCRIT 34.6 % (36.0-47.0); HEMOGLOBIN 11.2 g/dl (12.0-15.5); MEAN CORPUSCULAR HEMOGLOBIN 28.8 pg (27.0-33.0); MEAN CORPUSCULAR HGB CONC 32.4 g/dl (32.0-36.5); MEAN CORPUSCULAR VOLUME 88.9 fl (80.0-96.0); PLATELET COUNT, AUTOMATED 285 10^3/uL (150-450); RED BLOOD COUNT 3.89 10^6/uL (4.00-5.40); WHITE BLOOD COUNT 11.8 10^3/uL (4.0-10.0)
== END ==
LOC: M LAB 09:34
PROVIDERS: ATTEND Obstetrics & Gynecology
DX: Z34.82 Encounter for supervision of other normal pregnancy, second trimester (principal)

== ENCOUNTER → 2024-12-16 | Outpatient (CLI) | payer OTHER | LOC: M LAB 07:37 | PROVIDERS: ATTEND Obstetrics & Gynecology | DX: O99.810 Abnormal glucose complicating pregnancy (principal); Z3A.00 Weeks of gestation of pregnancy not specified ==

== ENCOUNTER 2025-03-05 05:37 | Inpatient (IN) | payer OTHER ==
[2025-03-05] VITALS (10 sets, daily range): BP systolic 119–136; BP diastolic 60–83; TEMP 96.5; O2SAT 97–98
[~2025-03-05] VITALS: Ht 154.9 cm; Wt 89.9 kg
[~2025-03-05 05:37] MED LIST changes: +GLYB5TAB6 PO
[2025-03-05] MEDS ORDERED: LR 1,000 ML IV SCH (05:50)
[2025-03-05] MEDS: LACTATED RINGER'S 1000 ML IV STA (06:21)
[2025-03-05 07:13] LABS: PLATELET COUNT, AUTOMATED 247 10^3/uL (150-450)
[2025-03-05] MEDS ORDERED: MORPHINE PRES-FREE INJ 10 MG/10 ML VIAL As Ordered ONE (07:17)
[2025-03-05] MEDS ORDERED: ONDANSETRON 4MG 2ML VIAL As Ordered ONE (07:23)
[2025-03-05] MEDS ORDERED: KETOROLAC 30 MG/ML 1 ML VIAL As Ordered ONE (07:23)
[2025-03-05] MEDS ORDERED: ACETAMINOPHEN 1000MG/100ML IV BAG As Ordered ONE (07:25)
[2025-03-05] MEDS: BICITRA 30 ML SOLN UDC PO ONE (07:30)
[2025-03-05] MEDS: ceFAZolin SODIUM 2 GM in DEXTROSE 5% (D5W) ADV/MINI-BAG 50 ML IV ONE (07:30)
[2025-03-05] MEDS ORDERED: PERC5TAB12 PO (07:31)
[2025-03-05] MEDS ORDERED: IBUP-359 PO (07:33)
[2025-03-05 07:37] LABS: GLUCOSE,RANDOM 82 MG/DL (LESS THAN 200)
[2025-03-05] MEDS ORDERED: GLYCOPYRROLATE INJ 0.2 MG/ML 2 ML VIAL As Ordered ONE (07:49)
[2025-03-05 08:15] LABS: HIV 1&2 SCREEN NEGATIVE (NEGATIVE)
[2025-03-05 08:23] LABS: HEPATITIS C VIRUS ABY INDEX < 0.02 INDEX (<0.8)
[2025-03-05] MEDS ORDERED: METHYLERGONOVINE MALEATE 0.2 MG TAB PO PRN (08:25)
[2025-03-05] MEDS ORDERED: SIMETHICONE 80MG CHEW TAB PO PRN (08:25)
[2025-03-05] MEDS ORDERED: RHOGAM 300MCG (1500IU) INJ IM SCH (08:25)
[2025-03-05 08:28] LABS: CORD GAS ABE A -4.0; CORD GAS HCO3 A 24.1 MMOL/L; CORD GAS O2 SAT A 55.3 %; CORD GAS PCO2 A 56.0 mmHg; CORD GAS PH A 7.251 UNITS; CORD GAS PO2 A 24.3 mmHg; CORD GAS SBC A 20.2 MMOL/L; CORD GAS TCO2 A 25.8 MMOL/L
[2025-03-05 08:29] LABS: CORD GAS ABE V -3.9; CORD GAS HCO3 V 21.9 MMOL/L; CORD GAS O2 SAT V 90.0 %; CORD GAS PCO2 V 42.6 mmHg; CORD GAS PH V 7.329 UNITS; CORD GAS PO2 V 47.4 mmHg; CORD GAS SBC V 21.1 MMOL/L; CORD GAS TCO2 V 23.2 MMOL/L
[2025-03-05] MEDS ORDERED: OXYTOCIN 30UNITS IN 0.9% NaCl 500ML IV BAG As Ordered ONE (08:34)
[2025-03-05] MEDS ORDERED: HYDROMORPHONE HCL 0.5 MG/0.5 ML SYRINGE IV PRN (08:35)
[2025-03-05] MEDS ORDERED: NALOXONE INJ 0.4 MG/1 ML VIAL IV PRN ×2 (08:35)
[2025-03-05] MEDS: SLF 3 ML SYR IV SCH (08:35)
[2025-03-05] MEDS ORDERED: ONDANSETRON 4MG 2ML VIAL IV PRN ×2 (08:35→11:50)
[2025-03-05] MEDS ORDERED: **NOTE PATIENT COMMENT** MISC XX SCH (08:35)
[2025-03-05] MEDS: OXYTOCIN DRIP 30 UNITS in IV 1 EA IV SCH (08:35)
[2025-03-05] MEDS: DOCUSATE SODIUM 100 MG CAPSULE PO SCH (09:00)
[2025-03-05] MEDS: PRENATAL VITAMINS CHEWABLE TABLET PO SCH (09:00)
[2025-03-05] MEDS: LR 1,000 ML IV ONE (12:20)
[2025-03-05] MEDS: LR 1,000 ML IV SCH ×2 (12:21→12:40)
[2025-03-05] MEDS: diphenhydrAMINE 50 MG/ML VIAL IV PRN (13:39)
[2025-03-05] MEDS: KETOROLAC 30 MG/ML 1 ML VIAL IV SCH (14:31)
[2025-03-05 20:16] LABS: CALCIUM LEVEL 8.2 MG/DL (8.5-10.1); CARBON DIOXIDE LEVEL 24 MMOL/L (20-31); CHLORIDE LEVEL 106 MMOL/L (98-107); CREATININE FOR GFR 0.61 MG/DL (0.55-1.30); GLOMERULAR FILTRATION RATE > 90.0 (>60); POTASSIUM SERUM 4.0 MMOL/L (3.5-5.1); SODIUM LEVEL 140 MMOL/L (136-145)
[2025-03-06 01:42] VITALS: BP 102/54; O2SAT 99
[2025-03-06] MEDS: ACETAMINOPHEN 500 MG TAB PO PRN (06:23)
[2025-03-06 06:24] VITALS: BP 134/65; O2SAT 98
[2025-03-06 07:19] LABS: PLATELET COUNT, AUTOMATED 186 10^3/uL (150-450)
[2025-03-06 07:39] LABS: CALCIUM LEVEL 7.6 MG/DL (8.5-10.1); CARBON DIOXIDE LEVEL 23 MMOL/L (20-31); CHLORIDE LEVEL 108 MMOL/L (98-107); CREATININE FOR GFR 0.63 MG/DL (0.55-1.30); GLOMERULAR FILTRATION RATE > 90.0 (>60); POTASSIUM SERUM 4.1 MMOL/L (3.5-5.1); SODIUM LEVEL 142 MMOL/L (136-145)
[2025-03-06] MEDS: IBUPROFEN 800 MG TAB PO SCH (09:55)
[2025-03-06 10:00] VITALS: BP 118/66; O2SAT 96
[2025-03-06 14:00] VITALS: BP 130/78; O2SAT 98
[2025-03-06 18:00] VITALS: BP 132/82; O2SAT 14
[2025-03-06] MEDS ORDERED: PERCOCET 5MG/325MG TAB PO PRN ×2 (18:15)
[2025-03-06 22:00] VITALS: BP 132/74
[2025-03-07 02:00] VITALS: BP 119/58; O2SAT 96
[2025-03-07 06:00] VITALS: BP 125/80; O2SAT 98
[2025-03-07] MEDS ORDERED: MEASLES,MUMPS,RUBELLA VACCINE INJ (MMR-II) SC.IMMUN ONE (09:00)
== END 2025-03-07 12:15 | disposition home or self-care (01) | DRG 540 ==
LOC: M LDI 05:37 → M OBS 10:16
PROVIDERS: ADMIT Obstetrics & Gynecology; ATTEND Obstetrics & Gynecology
PROC: 10D00Z1 Extraction of Products of Conception, Low, Open Approach (ICD-10-PCS; principal; 2025-03-05 07:30)
DX: O24.425 Gestational diabetes mellitus in childbirth, controlled by oral hypoglycemic drugs (principal); O36.63X0 Maternal care for excessive fetal growth, third trimester, not applicable or unspecified; Z37.0 Single live birth; Z3A.40 40 weeks gestation of pregnancy

== ENCOUNTER → 2025-04-27 | Outpatient (REF) | payer OTHER ==
[~2025-04-27] MED LIST changes: +IBUP-359 PO; +PERC5TAB12 PO
== END ==
LOC: M LAB REF 17:09
PROVIDERS: ATTEND Student in an Organized Health Care Education/Training Program
DX: R30.0 Dysuria (principal)

== ENCOUNTER → 2025-06-03 | Outpatient (CLI) | payer OTHER | LOC: M LAB 08:52 | PROVIDERS: ATTEND Physician Assistant | DX: Z86.32 Personal history of gestational diabetes (principal) ==